=== PATIENT | male | born 1960 | race Caucasian/White ===

== ENCOUNTER 2017-07-27 20:31 | Emergency (ER) | payer OTHER, MEDICARE ==
--- NOTE | 2017-07-27 21:09 | ED Physician Chart ---
ED Chief Complaint/HPI - Patient Information Date Seen:: 07/27/17 Time Seen:: 21:08 Chief Complaint:: Low back pain History of Present Illness:: 57 yo male had chronic low back pain and right leg pain for 8 years worsened for 2 days. He also had numbness and weakness of right leg. He walked with a cane. He did not take pain medication at home. He had MRI L-spine performed 1 year ago but he did not know the result. Allergies:: Allergies Allergy/AdvReac Type Severity Reaction Status Date / Time No Known Allergies Allergy Verified 07/27/17 21:04 ED Review of Systems - Review of Systems General/Constitutional: No fever, No chills Skin: No skin lesions Head: No headache Eyes: No pain ENT: No nasal drainage Neck: No neck pain Cardio Vascular: No chest pain Pulmonary: No SOB GI: No nausea, No vomiting Musculoskeletal: Back pain Hematopoietic: No bruising Neurological: Weakness, No confusion ED Past Medical History - Past Medical History Past Medical History: DM, Other (low back pain) Social History: Smoker, No Alcohol, No Drug Use Surgical History: None Family Medical History - Family Member Mother History Unknown: Yes ED Physical Exam - Physical Examination General/Constitutional: Awake, Alert Head: Atraumatic Eyes: PERRL Skin: No skin lesions ENMT: Nasal exam nl Neck: No nuchal rigidity Respiratory: Clear to Auscultation, No Wheeze/Rhonchi/Rales Cardio Vascular: RRR, No murmur, gallop, rubs, NL S1 S2 GI: No tenderness/rebounding/guarding Other Extremities comments:: Right sacroiliac joint tenderness, right hip flexion, extension weakness, limited and painful ROM of lumbar spine Neuro/Psych: Alert/oriented ED Labs/Radiology/EKG Results - Radiology Results Results: L spine X ray: degenerative changes at L4-L5, L5-S1 ED Assessment - Assessment General Assessment: Low back pain Right lumbar radiculopathy Assessment/Comments:: Lumbar spine X ray CBC, CMP Toradol 30mg IM x 1 Flexeril 10mg PO x 1 ED Septic Shock - . Is Septic Shock (SBP<90, OR Lactate>4 mmol\L) present?: No ED Reassessment (Disposition) - Reassessment Reassessment Condition:: Improved - Patient Disposition Discharge/Transfer:: Home ED Discharge Plan - Patient Disposition Admit/Discharge/Transfer: PT DISCHARGED HOME Condition at Disposition: Improved Instructions: Back Pain, Adult, [id number], Lumbosacral Radiculopathy Additional Instructions: Follow up with your primary care provider as soon as possible. Return to ED immediately if symptoms worsen.
[2017-07-27 21:40] LABS: % BASOPHILS 0.6 % (0.0-2.0); % EOSINOPHILS 2.3 % (0.0-5.0); % LYMPHOCYTES 25.2 % (20.0-50.0); % MONOCYTES 3.6 % (2.0-10.0); % NEUTROPHILS 68.3 % (40.0-80.0); EOSINOPHILE ABSOLUTE 0.2 Th/cmm (0.1-0.4); HEMATOCRIT 43.6 % (41.0-60); HEMOGLOBIN 14.5 gm/dL (12-16); MEAN CORPUSCULAR HEMOGLOBIN 28.9 pg (26.0-30.0); MEAN CORPUSCULAR HGB CONC 33.3 pg (28.0-36.0); MEAN PLATELET VOLUME 9.5 fl; MONOCYTE ABSOLUTE 0.3 Th/cmm (0.3-1.0); NEUTROPHILE ABSOLUTE 5.4 Th/cmm (1.8-8.0); PLATELET COUNT 188 Th/cmm (150-400); RED BLOOD COUNT 5.01 Mil/cmm (4.30-5.70); RED CELL DISTRIBUTION WIDTH 13.2 % (11.5-20.0); WHITE BLOOD COUNT 7.9 Th/cmm (4.8-10.8)
[2017-07-27 21:55] LABS: ALB/GLOB RATIO 1.3 (1.0-1.8); ALKALINE PHOSPHATASE 51 U/L (34-104); ANION GAP 8.9 (7.0-16.0); BILIRUBIN,TOTAL 0.3 mg/dL (0.3-1.0); BUN - UREA NITROGEN 15 mg/dL (7-25); CARBON DIOXIDE 27.1 mEq/L (21.0-31.0); CHLORIDE 107 mEq/L (98-107); CREATININE - SERUM 0.8 mg/dL (0.7-1.3); GFR AFRICAN-AMERICAN > 60.0 ml/min (>90); GFR NON AFRICAN-AMERICAN > 60.0 ml/min; GLUCOSE 145 mg/dL (70-105); SGOT 13 U/L (13-39); SGPT/ALT 13 U/L (7-52); SODIUM SERUM 139 mEq/L (136-145)
--- NOTE | 2017-07-28 08:20 | Diagnostic Imaging Report ---
Exam: Lumbar sacral spine. HISTORY: Low back pain Findings: Multiple views of lumbar sacral spine were obtained. The study demonstrates mild degenerative narrowing of the L5-S1 intervertebral disc space. The vertebral bodies of normal height. Mild osteophytic spurring is noted in L2 level vertebra. There is no evidence of prevertebral soft tissue swelling. The pedicles are intact. There is no evidence of spondylolysis or spondylolisthesis . The posterior elements are intact. Clinically indicated MRI examination might be helpful. IMPRESSION 1. Mild degenerative narrowing of the L4-5 S1 intervertebral disc space.
== END 2017-07-27 23:07 | disposition home or self-care (01) ==
LOC: ER 20:31
DX: M54.16 Radiculopathy, lumbar region (principal); E11.9 Type 2 diabetes mellitus without complications
CPT/HCPCS: 99285; 96372; 72110; 36415; 85025; 80053; J1885; Z7610

== ENCOUNTER 2018-06-13 13:28 | Emergency (ER) | payer MEDICARE, MEDICAID ==
--- NOTE | 2018-06-13 15:02 | Diagnostic Imaging Report ---
CT lumbar spine without IV contrast HISTORY: Trauma COMPARISON: Lumbar spine x-ray on 07/27/2017 Technique: Axial images were obtained from the lower thoracic spine to the upper sacrum without IV contrast. Reconstructions were made. total DLP: [id number], CTDI49.7 Findings: Images of the lumbar spine obtained without contrast demonstrate no evidence of acute fracture or subluxation. There is partial lumbarization of S1. Generalized moderate degenerative changes are noted greatest within the facet joints of the lower lumbar spine at L5/S1 with hypertropic calcification seen along the neural foraminal regions bilaterally causing moderate bilateral neural foraminal narrowing at this level. Multilevel marginal osteophytic spurs are noted greatest anteriorly. Small 2 mm disc bulges are seen along the lower lumbar spine extending from L3 to S1. Degenerative changes of SI joints are noted. 4 mm bone island of the right superior sacrum is noted. The visualized retroperitoneum demonstrates atherosclerosis. IMPRESSION: No evidence of an acute fracture or subluxation. Degenerative changes as detailed above. Mild atherosclerosis.
[2018-06-13 15:21] LABS: URINE SOURCE CLEAN C
[2018-06-13 15:26] LABS: URINE BILIRUBIN NEGATIVE (NEGATIVE); URINE BLOOD NEGATIVE (NEGATIVE); URINE GLUCOSE (UA) NEGATIVE (NEGATIVE); URINE KETONE NEGATIVE (NEGATIVE); URINE LEUKOCYTE ESTERASE NEGATIVE (NEGATIVE); URINE NITRATE NEGATIVE (NEGATIVE); URINE PH 6.5 (4.6 - 8.0); URINE PROTEIN NEGATIVE (NEGATIVE); URINE UROBILINOGEN 0.2 E.U./dL (0.2 - 1.0)
[2018-06-13 15:30] LABS: URINE CLARITY CLEAR (CLEAR); URINE COLOR YELLOW; URINE MICROSCOPIC INDICATED? YES
[2018-06-13 15:32] LABS: URINE BACTERIA FEW /hpf (NONE SEEN); URINE EPITHELIAL CELLS FEW /lpf (FEW); URINE RBC 0-2 /hpf (0-5)
[2018-06-13 15:41] LABS: AMPHETAMINE URINE NEGATIVE (NEGATIVE); BARBITURATES URINE NEGATIVE (NEGATIVE); BENZODIAZEPINES QUAL URINE NEGATIVE (NEGATIVE); CANNABINOID THC NEGATIVE (NEGATIVE); COCAINE METABOLITE QUAL URINE NEGATIVE (NEGATIVE); METHADONE URINE NEGATIVE (NEGATIVE); METHAMPHETAMINES QUAL URINE NEGATIVE (NEGATIVE); OPIATES (MORPHINE) QUAL. URINE NEGATIVE (NEGATIVE); PHENCYCLIDINE (PCP) URINE NEGATIVE (NEGATIVE); TRICYCLICS (TCA) QUAL. URINE NEGATIVE (NEGATIVE)
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
== END 2018-06-13 16:00 | disposition home or self-care (01) ==
LOC: ER 13:28
DX: M54.5 Low back pain (principal); G89.29 Other chronic pain
CPT/HCPCS: 99284; 96374; 96375; 72131; 36416; 82948; 80307; 81001; J1885; J2930; Z7502